=== PATIENT | female | born 1960 | race Caucasian/White ===

== ENCOUNTER 2018-12-17 10:33 | Emergency (ER) | payer OTHER ==
[2018-12-17] MEDS ORDERED: Sodium Chloride 0.9% 10 ML Syringe FLUSH PRN (11:35)
--- NOTE | 2018-12-17 11:38 | EDM.PDOC ---
ED HPI GENERAL MEDICAL PROBLEM - General Chief Complaint: Abdominal Pain Stated Complaint: FEVER, SEVERE ABD PAIN, NAUSEA Time Seen by Provider: 12/17/18 11:22 Source of Information: Reports: Patient, Family, RN Notes Reviewed History Limitations: Reports: No Limitations - History of Present Illness INITIAL COMMENTS - FREE TEXT/NARRATIVE: 58-year-old female presents emergency department today complaint of abdominal pain, she states it started 2 days ago has progressively gotten worse she is nauseated she is still passing gas has not had a bowel movement has had poor oral intake no shortness of breath fevers or chest pain. 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 Gastrointestinal History: Reports: Diverticulosis [employer] History: Reports: Musculoskeletal History: Reports: Fracture, Osteoarthritis Other Musculoskeletal History: right ankle fx 2011, right wrist fx Neurological History: Reports: Migraines - Infectious Disease History Infectious Disease History: Reports: Chicken Pox, Measles, Mumps - Past Surgical History HEENT Surgical History: Reports: Tonsillectomy Respiratory Surgical History: Reports: None GI Surgical History: Reports: Colonoscopy Female Surgical History: Reports: Hysterectomy, Salpingo-Oophorectomy, Tubal Ligation Social & Family History - Tobacco Use Smoking Status *Q: Never Smoker - Caffeine Use Caffeine Use: Reports: Soda - Recreational Drug Use Recreational Drug Use: No ED ROS GENERAL - Review of Systems Review Of Systems: See Below Constitutional: Reports: No Symptoms HEENT: Reports: No Symptoms Respiratory: Reports: No Symptoms Cardiovascular: Reports: No Symptoms GI/Abdominal: Reports: Abdominal Pain, Flatus, Nausea. Denies: Constipation, Diarrhea, Vomiting : Reports: No Symptoms Musculoskeletal: Reports: No Symptoms Skin: Reports: No Symptoms ED EXAM, GI/ABD - Physical Exam Exam: See Below Exam Limited By: No Limitations General Appearance: Alert, WD/WN, No Apparent Distress Neck: Normal Inspection, Supple, Non-Tender, Full Range of Motion Respiratory/Chest: No Respiratory Distress, Lungs Clear, Normal Breath Sounds, No Accessory Muscle Use, Chest Non-Tender Cardiovascular: Regular Rate, Rhythm, No Murmur GI/Abdominal Exam: Soft, Guarding, Tender Extremities: Normal Inspection, No Pedal Edema Course - Vital Signs Last Recorded V/S: Last Vital Signs Temp 97.3 F 12/17/18 11:27 Pulse 85 12/17/18 11:27 Resp 18 12/17/18 11:27 BP 133/75 12/17/18 12:25 Pulse Ox 95 12/17/18 11:27 - Orders/Labs/Meds Orders: Active Orders 24 hr Category Date Time Status Peripheral IV Care [RC] . DIRECTED Care 12/17/18 11:35 Active UA W/MICROSCOPIC [URIN] Urgent Lab 12/17/18 13:43 Ordered Iopamidol [Isovue-300 (61%)] Med 12/17/18 12:45 Active 100 ml IV . DIRECTED Lactated Ringers [Ringers, Lactated] 1,000 ml Med 12/17/18 11:45 Active IV ASDIRECTED Sodium Chloride 0.9% [Saline Flush] Med 12/17/18 11:35 Active 10 ml FLUSH ASDIRECTED PRN Peripheral IV Insertion Adult [OM.PC] Urgent Oth 12/17/18 11:35 Ordered Medication Orders Lactated Ringer's (Ringers, Lactated) 1,000 mls @ 999 mls/hr IV ASDIRECTED MARTÍN Last Admin: 12/17/18 12:12 Dose: 999 mls/hr Iopamidol (Isovue-300 (61%)) 100 ml IV . DIRECTED MARTÍN Last Admin: 12/17/18 12:44 Dose: 100 ml Sodium Chloride (Saline Flush) 10 ml FLUSH ASDIRECTED PRN PRN Reason: Keep Vein Open Last Admin: 12/17/18 12:13 Dose: 10 ml Labs: Laboratory Tests 12/17/18 12/17/18 12/17/18 Range/Units 11:43 11:43 11:43 WBC 15.7 H (4.5-11.0) K/uL RBC 5.12 (3.30-5.50) M/uL Hgb 14.0 (12.0-15.0) g/dL Hct 42.4 (36.0-48.0) % MCV 83 (80-98) fL MCH 27 (27-31) pg MCHC 33 (32-36) % Plt Count 270 (150-400) K/uL Neut % (Auto) 77 H (36-66) % Lymph % (Auto) 12 L (24-44) % [place] % (Auto) 11 H (2-6) % Eos % (Auto) 0 L (2-4) % Baso % (Auto) 0 (0-1) % Sodium 139 L (140-148) mmol/L Potassium 3.7 (3.6-5.2) mmol/L Chloride 103 (100-108) mmol/L Carbon Dioxide 27 (21-32) mmol/L Anion Gap 12.7 (5.0-14.0) mmol/L BUN 12 (7-18) mg/dL Creatinine 0.8 (0.6-1.0) mg/dL Est Cr Clr Drug Dosing 67.00 mL/min Estimated GFR (MDRD) > 60 (>60) Glucose 138 H (74-106) mg/dL Lactic Acid 1.9 (0.4-2.0) mmol/L Calcium 9.3 (8.5-10.1) mg/dL Total Bilirubin 1.5 H (0.2-1.0) mg/dL AST 22 (15-37) U/L ALT 38 (12-78) U/L Alkaline Phosphatase 84 (46-116) U/L Troponin I < 0.017 (0.000-0.056) ng/mL Total Protein 7.1 (6.4-8.2) g/dL Albumin 3.4 (3.4-5.0) g/dL Globulin 3.7 H (2.3-3.5) g/dL Albumin/Globulin Ratio 0.9 L (1.2-2.2) Lipase 101 (73-393) U/L Meds: Medications Generic Name Dose Route Start Last Admin Trade Name Freq PRN Reason Stop Dose Admin Lactated Ringer's 1,000 mls @ 999 mls/hr 12/17/18 11:45 12/17/18 12:12 Ringers, Lactated IV 999 mls/hr ASDIRECTED MARTÍN Administration Iopamidol 100 ml 07/04/19 12:45 12/17/18 12:44 Isovue-300 (61%) IV 100 ml . DIRECTED MARTÍN Administration Sodium Chloride 10 ml 12/17/18 11:35 12/17/18 12:13 Saline Flush FLUSH 10 ml ASDIRECTED PRN Administration Keep Vein Open Discontinued Medications Generic Name Dose Route Start Last Admin Trade Name Freq PRN Reason Stop Dose Admin Fentanyl 50 mcg 12/17/18 12:17 12/17/18 12:54 Sublimaze IVPUSH 12/17/18 12:18 50 mcg ONETIME ONE Administration Sodium Chloride 100 mls @ 3.5 mls/sec 12/17/18 12:39 12/17/18 12:43 Normal Saline IV 12/17/18 12:40 3.5 mls/sec ONETIME ONE Administration Ondansetron HCl 4 mg 12/17/18 12:17 12/17/18 13:00 Zofran IVPUSH 12/17/18 12:18 4 mg ONETIME ONE Administration Departure - Departure Time of Disposition: 13:49 Disposition: Home, Self-Care 01 Condition: Fair Clinical Impression: Diverticulitis - Discharge Information Referrals: PCP,None [Primary Care Provider] - Forms: ED Department Discharge Additional Instructions: Take full course of antibiotics, recommended bowel rest, ibuprofen as needed for pain control, Please followup with your primary care provider in 3-5 days if not better, please call return to the emergency department with worsening of symptoms. - My Orders Last 24 Hours: My Active Orders 12/17/18 11:35 Peripheral IV Care [RC] . DIRECTED Sodium Chloride 0.9% [Saline Flush] 10 ml FLUSH ASDIRECTED PRN Peripheral IV Insertion Adult [OM.PC] Urgent 12/17/18 11:45 Lactated Ringers [Ringers, Lactated] 1,000 ml IV ASDIRECTED 12/17/18 12:45 Iopamidol [Isovue-300 (61%)] 100 ml IV . DIRECTED 12/17/18 13:43 UA W/MICROSCOPIC [URIN] Urgent - Assessment/Plan Last 24 Hours: My Active Orders 12/17/18 11:35 Peripheral IV Care [RC] . DIRECTED Sodium Chloride 0.9% [Saline Flush] 10 ml FLUSH ASDIRECTED PRN Peripheral IV Insertion Adult [OM.PC] Urgent 12/17/18 11:45 Lactated Ringers [Ringers, Lactated] 1,000 ml IV ASDIRECTED 12/17/18 12:45 Iopamidol [Isovue-300 (61%)] 100 ml IV . 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
[2018-12-17] MEDS ORDERED: Lactated Ringers 1,000 ML IV SCH (11:45)
[2018-12-17] MEDS ORDERED: fentaNYL 100 MCG/2 ML SDV IVPUSH ONE (12:17)
[2018-12-17] MEDS ORDERED: Ondansetron 4 MG/2 ML SDV IVPUSH ONE (12:17)
[2018-12-17] MEDS ORDERED: Sodium Chloride 0.9% 100 ML IV ONE (12:39)
[2018-12-17] MEDS ORDERED: Iopamidol 612 MG/ML 100 ML Bottle IV SCH (12:45)
--- NOTE | 2018-12-17 13:29 | CRLCT ---
HISTORY: Left upper quadrant abdominal pain. TECHNIQUE: Intravenous contrast enhanced CT of the abdomen and pelvis. 100 mL of Isovue-300 intravenous contrast administered. COMPARISON: No prior. FINDINGS: There is fatty infiltration of the liver. No focal liver mass. No intrahepatic or extrahepatic biliary ductal dilatation. Gallbladder is mildly distended. Spleen size upper limits of normal. Adrenal glands normal. No focal pancreatic abnormality. Low-density renal lesions may represent cysts. There is no hydronephrosis or ureteral calculus. Urinary bladder does not appear overly distended. Prior hysterectomy. - Colonic diverticulosis. There is pericolonic inflammatory change associated with the distal transverse colon compatible with diverticulitis. One of the locules of gas about the superior aspect of the transverse colon in that region on image #58 of series 2 is questionably intraluminal and could indicate a tiny area of contained perforation. There is no free air remote from that area. No pericolonic abscess. A small amount of pelvic free fluid is present. There is no small bowel obstruction. - No abdominal aortic aneurysm. No adenopathy. - Degenerative changes of the spine. No acute fractures. - Mild scarring and/or atelectasis within the lung bases. IMPRESSION: 1. Acute diverticulitis involving the distal transverse colon. There is pericolonic inflammatory change without a pericolonic abscess. A 1 cm locule of gas in that region could be extraluminal and indicated a tiny area of contained perforation. There is no free air remote from that area, however. 2. Small amount of pelvic free fluid. 3. Fatty infiltration of the liver. 4. Prior hysterectomy. Dictated by Jewel Gandara MD @ 12/17/2018 1:28:21 PM Please note that all CT scans at this facility use dose modulation, iterative reconstruction, and/or weight-based dosing when appropriate to reduce radiation dose to as low as reasonably achievable. Dictated by: Jewel Gandara MD @ 12/17/2018 13:28:25 (Electronically Signed)
== END 2018-12-17 14:10 | disposition home or self-care (01) ==
LOC: JP.ED 10:33
DX: K57.32 Diverticulitis of large intestine without perforation or abscess without bleeding (principal); M19.90 Unspecified osteoarthritis, unspecified site; Z88.2 Allergy status to sulfonamides; Z88.5 Allergy status to narcotic agent; Z88.8 Allergy status to other drugs, medicaments and biological substances; Z90.710 Acquired absence of both cervix and uterus; Z98.51 Tubal ligation status; Z98.890 Other specified postprocedural states
CPT/HCPCS: 36415; 74177; 80053; 81001; 83605; 83690; 84484; 85025; 96361; 96374; 96375; 99284; J2405; J3010; J7030; J7120; Q9967

== ENCOUNTER 2025-03-25 21:18 | Observation (INO) | payer OTHER ==
[2025-03-25 21:55] LABS: BASOPHILS ABSOLUTE AUTO 0.08 K/uL (0.00-0.10); BASOPHILS PERCENT AUTO 0.9 % (0.1-1.3); EOSINOPHILS ABSOLUTE AUTO 0.23 K/uL (0.00-0.40); EOSINOPHILS PERCENT AUTO 2.5 % (0.0-5.4); IMMATURE GRAN ABSOLUTE AUTO 0.07 K/uL (0.00-0.23); IMMATURE GRAN PERCENT AUTO 0.8 % (0.0-0.7); LYMPHOCYTES ABSOLUTE AUTO 3.36 K/uL (0.8-3.3); LYMPHOCYTES PERCENT AUTO 37.0 % (11.4-47.7); MONOCYTES ABSOLUTE AUTO 0.73 K/uL (0.20-0.90); MONOCYTES PERCENT AUTO 8.0 % (3.3-12.6); NEUTROPHILS ABSOLUTE AUTO 4.60 K/uL (1.0-7.6); NEUTROPHILS PERCENT AUTO 50.8 % (40.0-78.1); PLATELET COUNT,PLT 296 K/uL (130-375); RED BLOOD CELL COUNT 4.53 M/uL (3.77-5.24); WHITE BLOOD CELL COUNT,WBC 9.1 K/uL (3.2-11.0)
[2025-03-25 22:06] LABS: APPEARANCE,URINE SLIGHTLY CLOUDY (CLEAR); GLUCOSE,URINE NEGATIVE (NEGATIVE); OCCULT BLOOD,URINE SMALL (NEGATIVE)
[2025-03-25 22:17] LABS: A/G RATIO 1.1 (1.2-2.2); ALANINE AMINOTRANSFERASE,ALT 26 U/L (12-78); ASPARTATE AMNIOTRANSFERASE,AST 23 U/L (15-37); BILIRUBIN TOTAL 0.4 mg/dL (0.2-1.0); BLOOD UREA NITROGEN,BUN 13 mg/dL (7-18); CARBON DIOXIDE,CO2 27 mmol/L (21-32); CHLORIDE,CL 103 mmol/L (100-108); CREATININE 0.9 mg/dL (0.6-1.0); EST CRCL DRUG DOSING (CG) 55.25 mL/min; ESTIMATED GFR 72 mL/min (>60); GLUCOSE RANDOM 151 mg/dL (74-106); POTASSIUM,K 3.4 mmol/L (3.6-5.2); PROTEIN TOTAL,TP 6.8 g/dL (6.4-8.2); SODIUM,NA 141 mmol/L (140-148)
[2025-03-25 22:19] LABS: SQUAMOUS EPITHELIAL CELLS,UR MANY /HPF; UROTHELIAL CELLS,URINE NOT SEEN /HPF
[2025-03-26] MEDS: Iopamidol 612 MG/ML 100 ML Bottle IV ONE (00:37)
[2025-03-26] MEDS: metroNIDAZOLE/Normal Saline 500 MG in Premix Bag 1 BAG IV ONE (01:23)
[2025-03-26] MEDS: Levofloxacin/Dextrose 5%-Water 750 MG in Premix Bag 1 BAG IV ONE (01:23)
[2025-03-26] MEDS ORDERED: Ondansetron 4 MG/2 ML SDV IV PRN (02:20)
[2025-03-26] MEDS ORDERED: Ondansetron 4 MG Tab.DIS PO PRN (02:20)
[2025-03-26 05:21] LABS: PLATELET COUNT,PLT 260.0 K/uL (130-375); RED BLOOD CELL COUNT 3.56 M/uL (3.77-5.24); WHITE BLOOD CELL COUNT,WBC 9.3 K/uL (3.2-11.0)
[2025-03-26 08:01] LABS: BLOOD UREA NITROGEN,BUN 18.0 mg/dL (7-18); CARBON DIOXIDE,CO2 25.0 mmol/L (21-32); CHLORIDE,CL 107.0 mmol/L (100-108); CREATININE 0.7 mg/dL (0.6-1.0); ESTIMATED GFR 97.0 mL/min (>60); GLUCOSE RANDOM 137.0 mg/dL (74-106); POTASSIUM,K 4.1 mmol/L (3.6-5.2); SODIUM,NA 140.0 mmol/L (140-148)
[2025-03-26 08:03] LABS: EST CRCL DRUG DOSING (CG) 71.03 mL/min
[2025-03-26] MEDS: metroNIDAZOLE/Normal Saline 500 MG in Premix Bag 1 BAG IV SCH (08:59)
[2025-03-26] MEDS ORDERED: Lactobacillus Rhamnosus GG (Probiotic) Cap PO SCH (09:00)
[2025-03-26 12:02] LABS: PLATELET COUNT,PLT 283.0 K/uL (130-375); RED BLOOD CELL COUNT 3.67 M/uL (3.77-5.24); WHITE BLOOD CELL COUNT,WBC 9.1 K/uL (3.2-11.0)
[2025-03-27] MEDS ORDERED: Levofloxacin/Dextrose 5%-Water 750 MG in Premix Bag 1 BAG IV SCH (01:00)
== END 2025-03-26 12:58 | disposition home or self-care (01) ==
LOC: JP.ED 21:18 → JP.MS 03-26 01:25
PROVIDERS: ADMIT Registered Nurse; ATTEND Student in an Organized Health Care Education/Training Program
DX: K57.93 Diverticulitis of intestine, part unspecified, without perforation or abscess with bleeding (principal); K92.1 Melena; Z88.5 Allergy status to narcotic agent; Z88.2 Allergy status to sulfonamides; Z88.8 Allergy status to other drugs, medicaments and biological substances; Z79.82 Long term (current) use of aspirin; Z79.899 Other long term (current) drug therapy
CPT/HCPCS: 36415; 74177; 80048; 80053; 81001; 83735; 85025; 85027; 86140; 87086; J1836; J1956; J2470; J7030; Q9967; 96361; 96365; 96366; 96368; 96375; 96376; 99285-25; G0378